=== PATIENT | female | born 1990 | race Caucasian/White ===

== ENCOUNTER 2020-04-18 11:10 | Emergency (ER) | payer OTHER ==
[~2020-04-18] VITALS: Ht 165.1 cm; Wt 74.8 kg
[~2020-04-18 11:10] MED LIST: CHLORDIAZEPOXID25 MG PO; CIPRO500 MG PO; CYCLOBENZAPRINE5 MG PO; DAYPRO600 MG PO; NAPROXEN500 MG PO; NO HOME MEDICATIONS; NORCO 5-325 TA1 EACH PO; ONDANSETRON ODT8 MG PO; PROMETHAZINE12.5 M1 PO; PROZAC20 MG PO; XANAX0.5 MG PO
--- NOTE | 2020-04-19 07:33 | EKG ---
[facility] [address] [place], [place] [address] Signed Normal sinus rhythm Normal ECG No previous ECGs available Confirmed by JUVE BROWER MD ([id number] on 04/19/2020 7:32:39 AM Electronically Signed By: JUVE BROWER MD 04/19/20 0733 PATIENT NAME: AURORA MIDDLETON Electrocardiogram DATE OF : 89 PHYSICIAN: JUVE BROWER MD REPORT #: [id number] REPORT IS CONFIDENTIAL AND NOT TO BE RELEASED WITHOUT AUTHORIZATION
== END 2020-04-18 12:48 | disposition home or self-care (01) ==
LOC: ED 11:10
DX: R55 Syncope and collapse (principal); E86.0 Dehydration; F17.200 Nicotine dependence, unspecified, uncomplicated; Z20.828 Contact with and (suspected) exposure to other viral communicable diseases; Z88.8 Allergy status to other drugs, medicaments and biological substances
CPT/HCPCS: 93005; 93010; 96374; 99284-25; J1885; J7030